=== PATIENT | male | born 1995 | race Caucasian/White ===

== ENCOUNTER 2019-01-27 21:10 | Emergency (ER) | payer BC, OTHER ==
[2019-01-27] MEDS ORDERED: Ticagrelor 90 MG Tab PO ONE (21:17)
[2019-01-27 21:45] LABS: CHLORIDE,CL 104 mmol/L (98-107); SODIUM,NA 140 mmol/L (136-145)
--- NOTE | 2019-01-27 21:47 | EDM.PDOC ---
ED HPI GENERAL MEDICAL PROBLEM - General Chief Complaint: Chest Pain Stated Complaint: CHEST PAIN Time Seen by Provider: 01/27/19 21:15 Source of Information: Reports: Patient, EMS History Limitations: Reports: No Limitations - History of Present Illness INITIAL COMMENTS - FREE TEXT/NARRATIVE: Patient brought in for left sided chest pain that developed while he was at work. Patient was lifting a heavy object when sudden pain was noted left side of chest at 18:30. Patient has had this pain before on/off throughout this past winter. It would develop after lifting/shoveling and last around two days before subsiding. 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 EMS noted ST elevation (less than 2mm) in lead II, III, AVF, V2, V3 and called a STEMI. Patient given nitro which did help his chest pain, and also received ASA en route. Received Brillinta shortly after arrival to ER. Patient has unremarkable past medical history other than juvenile heart murmur. Nonsmoker. Minimal ETOH use. Family history unremarkable per patient, including for heart disease. Patient denies SOB/sweating/nausea. Pain does not radiate. Pain is worse when moving, such as sitting up from lying down, or taking in a breath. No other complaints. Treatments [employer]: Reports: Aspirin, EKG, IV/IO, Nitroglycerin Left Chest Pain Score (Numeric/FACES): 3 - Related Data Allergies Allergy/AdvReac Type Severity Reaction Status Date / Time No Known Allergies Allergy Verified 01/27/19 21:13 Home Meds: Home Meds . [No Known Home Meds] 01/27/19 [History] Past Medical History HEENT History: Reports: Impaired Vision Cardiovascular History: Reports: Heart Murmur Other Cardiovascular History: Heart murmur as a child Social & Family History - Family History Family Medical History: Noncontributory - Tobacco Use Smoking Status *Q: Never Smoker - Caffeine Use Caffeine Use: Reports: Coffee - Alcohol Use Alcohol Use History: No Alcohol Use Frequency: Rarely - Recreational Drug Use Recreational Drug Use: No Drug Use in Last 12 Months: No ED ROS GENERAL - Review of Systems Review Of Systems: See Below Constitutional: Reports: No Symptoms HEENT: Reports: No Symptoms Respiratory: Denies: Shortness of Breath, Wheezing, Cough, Sputum, Hemoptysis Cardiovascular: Reports: Chest Pain. Denies: Dyspnea on Exertion, Edema, Lightheadedness, Orthopnea, Palpitations, PND, Syncope GI/Abdominal: Reports: No Symptoms : Reports: No Symptoms Musculoskeletal: Reports: No Symptoms. Denies: Shoulder Pain Skin: Reports: No Symptoms Neurological: Reports: No Symptoms Psychiatric: Reports: No Symptoms Hematologic/Lymphatic: Reports: No Symptoms ED EXAM, GENERAL - Physical Exam Exam: See Below Exam Limited By: No Limitations General Appearance: Alert, WD/WN, No Apparent Distress Eye Exam: Bilateral Eye: EOMI, PERRL Ears: Normal External Exam Nose: No: Nasal Deformity, Nasal Swelling, Nasal Drainage Throat/Mouth: Normal Lips, Normal Voice, No Airway Compromise Head: Atraumatic, Normocephalic Neck: Normal Inspection, Supple, Non-Tender, Full Range of Motion Respiratory/Chest: No Respiratory Distress, Lungs Clear, Normal Breath Sounds, No Accessory Muscle Use, Other (tender with palpation over left pectoral area and serratus anterior muscles, palpation reproduces pain) Cardiovascular: Normal Peripheral Pulses, Regular Rate, Rhythm, No Edema, No Murmur Peripheral Pulses: 2+: Radial (L), Radial (R) GI/Abdominal: Normal Bowel Sounds, Soft, Non-Tender, No Distention (Male) Exam: Deferred Rectal (Males) Exam: Deferred Back Exam: Normal Inspection, Full Range of Motion. No: CVA Tenderness (L), CVA Tenderness (R), Muscle Spasm, Paraspinal Tenderness, Vertebral Tenderness Extremities: Normal Inspection, Normal Range of Motion, Non-Tender, Normal Capillary Refill Neurological: Alert, Oriented, Normal Cognition, Normal Gait, No Motor/Sensory Deficits Psychiatric: Normal Affect, Normal Mood Skin Exam: Warm, Dry, Intact, Normal Color EKG INTERPRETATION EKG Date: 01/27/19 Time: 21:10 Rhythm: NSR Rate (Beats/Min): 79 [place]: Normal P-Wave: Present QRS: Normal ST-T: Other (diffuse mild ST elevation noted, including II, III, AVF, V2, V3. Voltage suggestive of possible LVH.) QT: Normal Comparison: NA - No Prior EKG EKG Interpretation Comments: Suspect early repolarization. Course - Orders/Labs/Meds Orders: Active Orders 24 hr Category Date Time Status Chest 2V [CR] Stat Exams 01/27/19 21:18 Ordered CK W CKMB [CHEM] Stat Lab 01/27/19 21:14 Ordered COMPREHENSIVE METABOLIC PN,CMP [CHEM] Stat Lab 01/27/19 21:14 Ordered D-DIMER QUANTITATIVE [COAG] Stat Lab 01/27/19 21:14 Ordered DRUG SCREEN, URINE [URCHEM] Stat Lab 01/27/19 21:21 Ordered INR,PT,PROTHROMBIN TIME [COAG] Stat Lab 01/27/19 21:14 Ordered LACTIC ACID [CHEM] Stat Lab 01/27/19 21:14 Ordered MAGNESIUM [CHEM] Stat Lab 01/27/19 21:14 Ordered PRO B-TYPE NATRIUR PEPT,BNPPRO [CHEM] Stat Lab 01/27/19 21:14 Ordered PTT,PARTIAL THROMBOPLSTIN TIME [COAG] Stat Lab 01/27/19 21:14 Ordered TROPONIN I [CHEM] Stat Lab 01/27/19 21:14 Ordered TSH ULTRASENSITIVE [CHEM] Stat Lab 01/27/19 21:14 Ordered Labs: Laboratory Tests 01/27/19 Range/Units 21:10 WBC 8.3 (4.0-10.2) K/uL RBC 5.24 (4.33-5.41) M/uL Hgb 15.8 (13.1-16.8) g/dL Hct 44.2 (39.0-49.0) % MCV 84.4 (84.0-98.0) fL MCH 30.2 (28.2-33.3) pg MCHC 35.7 (31.7-36.0) g/dL RDW 12.8 (11.2-14.1) % Plt Count 286 (150-350) K/uL Neut % (Auto) 51.0 (45.0-80.0) % Lymph % (Auto) 37.1 (10.0-50.0) % [place] % (Auto) 10.2 (2.0-14.0) % Eos % (Auto) 1.3 (0.0-5.0) % Baso % (Auto) 0.4 (0.0-2.0) % Neut # (Auto) 4.25 (1.40-7.00) K/uL Lymph # (Auto) 3.09 (0.50-3.50) K/uL [place] # (Auto) 0.85 (0.00-1.00) K/uL Eos # (Auto) 0.11 (0.00-0.50) K/uL Baso # (Auto) 0.03 (0.00-0.20) K/uL Meds: Medications Discontinued Medications Generic Name Dose Route Start Last Admin Trade Name Sarah PRN Reason Stop Dose Admin Ticagrelor 180 mg 01/27/19 21:17 01/27/19 21:20 Brilinta PO 01/27/19 21:18 180 mg ONETIME ONE Administration - Radiology Interpretation Free Text/Narrative:: No focal infiltrates noted on chest xray. No pneumothorax noted. No cardiomegaly noted. - Re-Assessments/Exams Free Text/Narrative Re-Assessment/Exam: 01/27/19 21:58 Suspect musculo-skeletal etiology for pain that was triggered by lifting at work given history and exam. Labs completely unremarkable, including CBC/Chem/Trop/DDimer/Mg/coags. Suspect mild diffuse EKG changes were due to early repolarization. Plan at this time is to let the patient return to work, but he is to avoid lifting. To observe for any additional changes and follow up as needed if there are additional problems/concerns. Patient is agreeable with plan. He did not wish to have rest of shift off of work. Toradol IV given prior to departure. Departure - Departure Time of Disposition: 22:06 Disposition: Home, Self-Care 01 Condition: Good Clinical Impression: Atypical chest pain - Discharge Information *PRESCRIPTION DRUG MONITORING PROGRAM REVIEWED*: Not Applicable *COPY OF PRESCRIPTION DRUG MONITORING REPORT IN PATIENT NORA: Not Applicable Instructions: Chest Wall Pain, Nonspecific Chest Pain, Egag-ne-Uosh Additional Instructions: Avoid heavy lifting for 48 hours. Monitor for any additional changes and follow up in ER if you have new concerns. Consider seeing a massage therapist to work on the affected muscles. Yoga/ stretching highly recommended to maintain flexibility (DDPY yoga is a good one to consider as discussed). There are also massage therapy balls/programs that you can find on [employer] (such as [employer]) that can be helpful with muscle soreness/tightness. OK to take Tylenol, or ibuprofen, or naprosyn to help with pain. - My Orders Last 24 Hours: My Active Orders 01/27/19 21:14 CK W CKMB [CHEM] Stat COMPREHENSIVE METABOLIC PN,CMP [CHEM] Stat D-DIMER QUANTITATIVE [COAG] Stat INR,PT,PROTHROMBIN TIME [COAG] Stat LACTIC ACID [CHEM] Stat MAGNESIUM [CHEM] Stat PRO B-TYPE NATRIUR PEPT,BNPPRO [CHEM] Stat PTT,PARTIAL THROMBOPLSTIN TIME [COAG] Stat TROPONIN I [CHEM] Stat TSH ULTRASENSITIVE [CHEM] Stat 01/27/19 21:18 Chest 2V [CR] Stat 01/27/19 21:21 DRUG SCREEN, URINE [URCHEM] Stat - Assessment/Plan Last 24 Hours: My Active Orders 01/27/19 21:14 CK W CKMB [CHEM] Stat COMPREHENSIVE METABOLIC PN,CMP [CHEM] Stat D-DIMER QUANTITATIVE [COAG] Stat INR,PT,PROTHROMBIN TIME [COAG] Stat LACTIC ACID [CHEM] Stat MAGNESIUM [CHEM] Stat PRO B-TYPE NATRIUR PEPT,BNPPRO [CHEM] Stat PTT,PARTIAL THROMBOPLSTIN TIME [COAG] Stat TROPONIN I [CHEM] Stat TSH ULTRASENSITIVE [CHEM] Stat 01/27/19 21:18 Chest 2V [CR] Stat 01/27/19 21:21 DRUG SCREEN, URINE [URCHEM] Stat
[2019-01-27] MEDS ORDERED: Ketorolac 30 MG/ML SDV IVPUSH ONE (21:57)
== END 2019-01-27 22:45 | disposition home or self-care (01) ==
LOC: LL.ED 21:10
DX: R07.89 Other chest pain (principal)
CPT/HCPCS: 36415; 71046; 80053; 82550; 82553; 83605; 83735; 83880; 84443; 84484; 85025; 85379; 85610; 85730; 96374; 99285-25; A9270-GY; J1885